=== PATIENT | male | born 1990 ===

== ENCOUNTER 2018-05-08 14:50 | Observation (INO) | payer OTHER ==
[2018-05-08] MEDS ORDERED: Sodium Chloride 0.9% 1,000 ML IV ONE ×2 (15:33→17:45)
--- NOTE | 2018-05-08 15:41 | ED PDOC ---
Upper Extremity Pain/Injury Time Seen by Provider: 05/08/18 15:00 Chief Complaint (Nursing): Upper Extremity Problem/Injury Chief Complaint (Provider): Upper Extremity Problem/Injury History Per: Patient History/Exam Limitations: no limitations Onset/Duration Of Symptoms: Days (x 1) Current Symptoms Are (Timing): Still Present Quality: Pressure, "Pain" Severity: None Exacerbating Factor(s): Nothing Additional Complaint(s): 28 year old male with no significant medical history presents to the ED for evaluation of atraumatic left arm swelling and pressure since last night. Patient regularly works out at a [employer] and carries weights on his arms. is at bedside and reports that he received Advil with last dose at 11am this morning. Patient was seen at an urgent care [facility] and was sent here for evaluation of potential blood clot or rhabdo per paperwork in patient's possession. Denies injury, trauma, history of cancer, dyspnea, chest pain, other muscle/joint pain, fever, tobacco abuse, hematuria, and any drug use. PMD: none Past Medical History Reviewed: Historical Data, Nursing Documentation, Vital Signs Vital Signs: Last Vital Signs Temp 97.6 F 05/08/18 14:56 Pulse 54 L 05/08/18 14:56 Resp 16 05/08/18 14:56 BP 120/71 05/08/18 14:56 Pulse Ox 99 05/08/18 14:56 - Medical History PMH: No Chronic Diseases - Surgical History Surgical History: No Surg Hx - Family History Family History: States: No Known Family Hx - Social History Current smoker - smoking cessation education provided: No Alcohol: Occasional Drugs: Denies - Home Medications Home Medications: Ambulatory Orders Medication Instructions Recorded No Known Home Med 05/08/18 - Allergies Allergies/Adverse Reactions: Allergies Allergy/AdvReac Type Severity Reaction Status Date / Time No Known Allergies Allergy Verified 05/08/18 14:56 Review of Systems ROS Statement: Except As Marked, All Systems Reviewed And Found Negative Skin: Positive for: Other (left arm swelling) Physical Exam - Reviewed Nursing Documentation Reviewed: Yes Vital Signs Reviewed: Yes - Physical Exam Comments: GENERAL APPEARANCE: Patient is awake, alert, oriented x 3, in no acute distress. SKIN: Warm, dry; (-) cyanosis. NECK: Supple, FROM ENT: Mucus membranes moist. Airway patent, (-) stridor. CHEST AND RESPIRATORY: (-) rales, (-) rhonchi, (-) wheezes; breath sounds equal bilaterally. Respirations even and nonlabored. HEART AND CARDIOVASCULAR: (-) irregularity EXTREMITY LUE: (+) painless edema to mid-upper to mid-lower arm; sensation intact. Full ROM at all joints, capillary refill intact; (-) deformity. (-) distal neurovascular deficit, (-) warmth, (-) erythema, (-) tenderness (-) ecchymosis. Remainder of upper extremity nontender with FROM. NEURO AND PSYCH: Mental status as above. Gait: steady. Speech: clear. (-) facial asymmetry (-) aphasia - Laboratory Results Result Diagrams: 05/08/18 16:32 05/08/18 16:32 - ECG O2 Sat by Pulse Oximetry: 99 (RA) Pulse Ox Interpretation: Normal Medical Decision Making Medical Decision Makin:30 Impression: upper arm swelling, concern for DVT vs rhabdo vs muscle strain --IV access --CK --CBC --CMP --ESR --Duplex US --NS IV 1,000 mls 16:35 US FINDINGS: LEFT: 1. Internal Jugular: 1.1. Compressibility - Fully compressible: Thrombus - None : Flow - Phasic: Augmentation -Normal: Reflux - None. 2. Subclavian: 2.1. Compressibility - Fully compressible: Thrombus - None : Flow - Phasic: Augmentation -Normal: Reflux - None. 3. Axillary: 3.1. Compressibility - Fully compressible: Thrombus - None : Flow - Phasic: Augmentation -Normal: Reflux - None. 4. Brachial: 4.1. Compressibility - Fully compressible: Thrombus - None: Flow - Phasic: Augmentation -Normal: Reflux - None. 5. Ulnar: 5.1. Compressibility - Fully compressible: Thrombus - None: Flow - Phasic: Augmentation -Normal: Reflux - None. 6. Radial: 6.1. Compressibility - Fully compressible: Thrombus - None: Flow - Phasic: Augmentation - Normal: Reflux - None. 7. Cephalic: 7.1. Compressibility - Fully compressible: Thrombus - None: Flow - Phasic: Augmentation -Normal: Reflux - None. 8. Basilic: 8.1. Compressibility - Fully compressible: Thrombus - None: Flow - Phasic: Augmentation -Normal: Reflux - None. OTHER FINDINGS: Left: None. IMPRESSION: Left: No evidence of vein thrombosis of the left upper extremity with excellent venous flow. Normal valve function noted of the left side. 1740 Labs reviewed, in light of elevated CK, additional 1 liter of NS ordered. Toradol 30mg IVP ordered. Elevation of LFTs also noted. Case discussed with ED MD Wagner, who recommends admission to med/surg for observation and IV hydration. Consult placed to med claim professional, Dr Pittman. ON re-evaluation, patient resting comfortably eating pizza. No complaints at present. [address] Pittman who is agreeable to obs med/surg admission. Patient agreeable to admission. Vitals stable. Scribe Attestation: Documented by Deb Plunkett acting as a scribe for Cat Dawson PA-C, MD Scribe Attestation: All medical record entries made by the Scribe were at my direction and personally dictated by me. I have reviewed the chart and agree that the record accurately reflects my personal performance of the history, physical exam, medical decision making, and the department course for this patient. I have also personally directed, reviewed, and agree with the discharge instructions and disposition. Disposition - Clinical Impression Clinical Impression: Swelling of upper extremity, Rhabdomyolysis - Patient ED Disposition Is Patient to be Admitted: Yes (med/surg obs) Counseled Patient/Family Regarding: Studies Performed, Diagnosis - Disposition Disposition Time: 18:25 Condition: STABLE - Pt Status Changed To: Hospital Disposition Of: Observation (med/surg) - POA Present On Arrival: None Results - Diagnostic Imaging Results Radiology Results Upper Extremity Ultrasound 05/08/18 15:28 IMPRESSION: Left: No evidence of vein thrombosis of the left upper extremity with excellent venous flow. Normal valve function noted of the left side. - Lab Results Lab Results: 05/08/18 05/08/18 16:32 16:32 WBC 4.0 L RBC 4.84 Hgb 14.6 Hct 42.7 MCV 88.3 MCH 30.2 MCHC 34.2 RDW 13.4 Plt Count 198 MPV 9.3 Neut % (Auto) 40.5 L Lymph % (Auto) 47.3 H [place] % (Auto) 8.9 Eos % (Auto) 2.9 Baso % (Auto) 0.4 Neut # (Auto) 1.6 L Lymph # (Auto) 1.9 [place] # (Auto) 0.4 Eos # (Auto) 0.1 Baso # (Auto) 0.0 ESR 5 Sodium 138 Potassium 4.3 Chloride 101 Carbon Dioxide 30 Anion Gap 11 BUN 15 Creatinine 0.8 Est GFR ( Amer) > 60 Est GFR (Non-Af Amer) > 60 Random Glucose 79 Calcium 9.9 Total Bilirubin 0.6 AST 233 H ALT 144 H Alkaline Phosphatase 61 Total Creatine Kinase 6797 H Total Protein 7.4 Albumin 4.2 Globulin 3.2 Albumin/Globulin Ratio 1.3
--- NOTE | 2018-05-08 16:40 | US ---
Date of service: 05/08/2018 PROCEDURE: Left Upper Extremity Venous Duplex Exam HISTORY: r/o dvt PRIORS: None. TECHNIQUE: Left upper extremity, internal jugular, subclavian, axillary, brachial, ulnar, radial, basilic and upper cephalic veins were evaluated. Flow was assessed with color Doppler, compressibility, assessment of phasic flow and augmentation response. Report prepared by vascular ultrasound technician. FINDINGS: LEFT: 1. Internal Jugular: 1.1. Compressibility - Fully compressible: Thrombus - None : Flow - Phasic: Augmentation -Normal: Reflux - None. 2. Subclavian: 2.1. Compressibility - Fully compressible: Thrombus - None : Flow - Phasic: Augmentation -Normal: Reflux - None. 3. Axillary: 3.1. Compressibility - Fully compressible: Thrombus - None : Flow - Phasic: Augmentation -Normal: Reflux - None. 4. Brachial: 4.1. Compressibility - Fully compressible: Thrombus - None: Flow - Phasic: Augmentation -Normal: Reflux - None. 5. Ulnar: 5.1. Compressibility - Fully compressible: Thrombus - None: Flow - Phasic: Augmentation -Normal: Reflux - None. 6. Radial: 6.1. Compressibility - Fully compressible: Thrombus - None: Flow - Phasic: Augmentation - Normal: Reflux - None. 7. Cephalic: 7.1. Compressibility - Fully compressible: Thrombus - None: Flow - Phasic: Augmentation -Normal: Reflux - None. 8. Basilic: 8.1. Compressibility - Fully compressible: Thrombus - None: Flow - Phasic: Augmentation -Normal: Reflux - None. OTHER FINDINGS: Left: None. IMPRESSION: Left: No evidence of vein thrombosis of the left upper extremity with excellent venous flow. Normal valve function noted of the left side.
[2018-05-08 16:58] LABS: BASO % 0.4 % (0.0-2.0); EOS # 0.1 K/uL (0.0-0.7); EOS % 2.9 % (0.0-4.0); HEMOGLOBIN 14.6 g/dL (12.0-18.0); LYMPH # 1.9 K/uL (1.0-4.3); LYMPH % 47.3 % (20.0-40.0); MEAN CELL VOLUME 88.3 fl (80.0-94.0); MEAN CORPUSCULAR HEMOGLOBIN 30.2 pg (27.0-31.0); MEAN CORPUSCULAR HGB CONC 34.2 g/dL (33.0-37.0); MEAN PLATELET VOLUME 9.3 fl (7.2-11.7); MONO # 0.4 K/uL (0.0-0.8); MONO % 8.9 % (0.0-10.0); NEUT # 1.6 K/uL (1.8-7.0); NEUT % 40.5 % (50.0-75.0); NRBC % 0.1 % (0.0-0.0); RBC 4.84 Mil/uL (4.40-5.90); RED CELL DISTRIBUTION WIDTH 13.4 % (11.5-14.5)
[2018-05-08 17:07] LABS: ALB/GLOB RATIO 1.3 (1.0-2.1); ALBUMIN 4.2 g/dL (3.5-5.0); ALT/SGPT 144 U/L (21-72); AST/SGOT 233 U/L (17-59); BLOOD UREA NITROGEN 15 mg/dl (9-20); CALCIUM 9.9 mg/dL (8.4-10.2); GFR NON-AFRICAN AMERICAN > 60
[2018-05-08] MEDS ORDERED: Sodium Chloride 0.9% 1,000 ML IV SCH (17:45)
[2018-05-08] MEDS: Sodium Chloride 0.9% 1,000 ML IV SCH (19:57)
[2018-05-09] MEDS: Sodium Chloride 0.9% 1,000 ML IV SCH ×5 (00:14→21:05)
[2018-05-09 00:33] VITALS: BMI 22.4
[2018-05-09 02:11] LABS: URINE BILIRUBIN NEGATIVE (NEGATIVE); URINE BLOOD NEGATIVE (NEGATIVE); URINE CLARITY CLEAR (Clear); URINE COLOR STRAW (YELLOW); URINE GLUCOSE (UA) NEG (NEGATIVE); URINE LEUKOCYTE ESTERASE NEG Leu/uL (Negative); URINE PROTEIN NEGATIVE (NEGATIVE); URINE UROBILINOGEN 0.2-1.0 mg/dL (0.2-1.0)
[2018-05-09 07:02] LABS: HEMOGLOBIN 13.4 g/dL (12.0-18.0); MEAN CELL VOLUME 87.9 fl (80.0-94.0); MEAN CORPUSCULAR HEMOGLOBIN 30.4 pg (27.0-31.0); MEAN CORPUSCULAR HGB CONC 34.6 g/dL (33.0-37.0); RBC 4.4 Mil/uL (4.40-5.90); RED CELL DISTRIBUTION WIDTH 13.8 % (11.5-14.5); WHITE BLOOD COUNT 4.5 K/uL (4.8-10.8)
[2018-05-09 07:11] LABS: ALB/GLOB RATIO 1.1 (1.0-2.1); ALT/SGPT 94 U/L (21-72); AST/SGOT 124 U/L (17-59); BLOOD UREA NITROGEN 13 mg/dl (9-20); CALCIUM 8.4 mg/dL (8.4-10.2); GFR NON-AFRICAN AMERICAN > 60
[2018-05-09 11:25] LABS: URINE BILIRUBIN NEGATIVE (NEGATIVE); URINE BLOOD NEGATIVE (NEGATIVE); URINE CLARITY CLEAR (Clear); URINE COLOR COLORLESS (YELLOW); URINE GLUCOSE (UA) NEG (NEGATIVE); URINE LEUKOCYTE ESTERASE NEG Leu/uL (Negative); URINE PROTEIN NEGATIVE (NEGATIVE); URINE UROBILINOGEN 0.2-1.0 mg/dL (0.2-1.0)
[2018-05-10 00:42] VITALS: RESP 20
[2018-05-10] MEDS: Sodium Chloride 0.9% 1,000 ML IV SCH ×4 (00:50→11:31)
--- NOTE | 2018-05-10 07:02 | CP.PCM.HP ---
History of Present Illness - History of Present Illness History of Present Illness: This is a 28 y/o male with no significant medical hx was admitted last night for pain swelling of the left upper arm noted after extensive triceps exercises at a [employer]. he sought eval at an Urgent care and was advised ER eval. He was noted to have left upper arm swelling and CPK levels was more than 6797. CPK is down to 2643 today. Left upper arm is noticeably swollen. Present on Admission - Present on Admission Any Indicators Present on Admission: No History of DVT/PE: No History of Uncontrolled Diabetes: No Urinary Catheter: No Decubitus Ulcer Present: No Past Patient History - Past Medical History & Family History Past Medical History?: No - Past Social History Alcohol: Occasional Drugs: Denies - CARDIAC Hx Cardiac Disorders: No - MUSCULOSKELETAL/RHEUMATOLOGICAL Hx Falls: No - PSYCHIATRIC Hx Substance Use: No - SURGICAL HISTORY Hx Surgeries: No - ANESTHESIA Hx Anesthesia: No Hx Anesthesia Reactions: No Meds Allergies/Adverse Reactions: Allergies Allergy/AdvReac Type Severity Reaction Status Date / Time No Known Allergies Allergy Verified 05/08/18 14:56 Physical Exam - Head Exam Head Exam: NORMAL INSPECTION - Eye Exam Eye Exam: Normal appearance - ENT Exam ENT Exam: Mucous Membranes Moist - Respiratory Exam Respiratory Exam: Clear to Auscultation Bilateral - Cardiovascular Exam Cardiovascular Exam: REGULAR RHYTHM - GI/Abdominal Exam GI & Abdominal Exam: Normal Bowel Sounds - Neurological Exam Neurological exam: CN II-XII Intact - Psychiatric Exam Psychiatric exam: Normal Mood Results - Vital Signs Recent Vital Signs: Last Vital Signs Temp 97.7 F 05/10/18 00:41 Pulse 77 05/10/18 00:41 Resp 20 05/10/18 00:41 BP 110/68 05/10/18 00:41 Pulse Ox 99 05/10/18 00:41 - Labs Result Diagrams: 05/09/18 05:40 05/09/18 05:40 Labs: Laboratory Results - last 24 hr 05/09/18 05/09/18 05/09/18 05:40 05:40 11:07 WBC 4.5 L RBC 4.40 Hgb 13.4 Hct 38.7 MCV 87.9 MCH 30.4 MCHC 34.6 RDW 13.8 Plt Count 186 Sodium 139 Potassium 3.8 Chloride 110 H Carbon Dioxide 23 Anion Gap 10 BUN 13 Creatinine 0.8 Est GFR ( Amer) > 60 Est GFR (Non-Af Amer) > 60 Random Glucose 90 Calcium 8.4 Phosphorus 4.4 Magnesium 1.8 Total Bilirubin 0.2 AST 124 H D ALT 94 H D Alkaline Phosphatase 59 Total Creatine Kinase 2643 H Total Protein 5.7 L Albumin 3.0 L D Globulin 2.7 Albumin/Globulin Ratio 1.1 Urine Color Colorless Urine Clarity Clear Urine pH 6.0 Ur Specific [place] 1.006 Urine Protein Negative Urine Glucose (UA) Neg Urine Ketones Negative Urine Blood Negative Urine Nitrate Negative Urine Bilirubin Negative Urine Urobilinogen 0.2-1.0 Ur Leukocyte Esterase Neg Urine RBC (Auto) 1 Urine Microscopic WBC 1 05/09/18 14:15 WBC RBC Hgb Hct MCV MCH MCHC RDW Plt Count Sodium Potassium Chloride Carbon Dioxide Anion Gap BUN Creatinine Est GFR ( Amer) Est GFR (Non-Af Amer) Random Glucose Calcium Phosphorus Magnesium Total Bilirubin AST ALT Alkaline Phosphatase Total Creatine Kinase 2636 H Total Protein Albumin Globulin Albumin/Globulin Ratio Urine Color Urine Clarity Urine pH Ur Specific [place] Urine Protein Urine Glucose (UA) Urine Ketones Urine Blood Urine Nitrate Urine Bilirubin Urine Urobilinogen Ur Leukocyte Esterase Urine RBC (Auto) Urine Microscopic WBC Assessment & Plan (1) Rhabdomyolysis Status: Acute - Assessment and Plan (Free Text) Plan: admit Hydration pain medications Monitor BMP and CPK. If CPK is lower than 2000 in the afternoon will send patienyt home otherwise will stay for another night for hydration.
[2018-05-10 07:39] LABS: ALB/GLOB RATIO 1.1 (1.0-2.1); ALBUMIN 2.9 g/dL (3.5-5.0); ALT/SGPT 89 U/L (21-72); AST/SGOT 80 U/L (17-59); BLOOD UREA NITROGEN 9 mg/dl (9-20); CALCIUM 8.5 mg/dL (8.4-10.2); GFR NON-AFRICAN AMERICAN > 60
[2018-05-10 08:29] VITALS: BP 112/67; PULSE 97; TEMP 97.9; O2SAT 97
--- NOTE | 2018-05-12 00:24 | CP.PCM.DIS ---
Provider - Provider Date of Admission: 05/08/18 18:27 Attending physician: Darrick Pittman MD Time Spent in preparation of Discharge (in minutes): 30 Diagnosis - Discharge Diagnosis (1) Rhabdomyolysis Status: Acute Hospital Course - Lab Results Lab Results: Most Recent Lab Values WBC 4.5 K/uL (4.8-10.8) L 05/09/18 05:40 RBC 4.40 Mil/uL (4.40-5.90) 05/09/18 05:40 Hgb 13.4 g/dL (12.0-18.0) 05/09/18 05:40 Hct 38.7 % (35.0-51.0) 05/09/18 05:40 MCV 87.9 fl (80.0-94.0) 05/09/18 05:40 MCH 30.4 pg (27.0-31.0) 05/09/18 05:40 MCHC 34.6 g/dL (33.0-37.0) 05/09/18 05:40 RDW 13.8 % (11.5-14.5) 05/09/18 05:40 Plt Count 186 K/uL (130-400) 05/09/18 05:40 MPV 9.3 fl (7.2-11.7) 05/08/18 16:32 Neut % (Auto) 40.5 % (50.0-75.0) L 05/08/18 16:32 Lymph % (Auto) 47.3 % (20.0-40.0) H 05/08/18 16:32 [place] % (Auto) 8.9 % (0.0-10.0) 05/08/18 16:32 Eos % (Auto) 2.9 % (0.0-4.0) 05/08/18 16:32 Baso % (Auto) 0.4 % (0.0-2.0) 05/08/18 16:32 Neut # (Auto) 1.6 K/uL (1.8-7.0) L 05/08/18 16:32 Lymph # (Auto) 1.9 K/uL (1.0-4.3) 05/08/18 16:32 [place] # (Auto) 0.4 K/uL (0.0-0.8) 05/08/18 16:32 Eos # (Auto) 0.1 K/uL (0.0-0.7) 05/08/18 16:32 Baso # (Auto) 0.0 K/uL (0.0-0.2) 05/08/18 16:32 ESR 5 mm/hr (0-15) 05/08/18 16:32 Sodium 141 mmol/l (132-148) 05/10/18 05:55 Potassium 3.7 MMOL/L (3.6-5.0) 05/10/18 05:55 Chloride 109 mmol/L (98-107) H 05/10/18 05:55 Carbon Dioxide 25 mmol/L (22-30) 05/10/18 05:55 Anion Gap 11 (10-20) 05/10/18 05:55 BUN 9 mg/dl (9-20) 05/10/18 05:55 Creatinine 0.8 mg/dl (0.8-1.5) 05/10/18 05:55 Est GFR ( Amer) > 60 05/10/18 05:55 Est GFR (Non-Af Amer) > 60 05/10/18 05:55 Random Glucose 90 mg/dL (75-110) 05/10/18 05:55 Calcium 8.5 mg/dL (8.4-10.2) 05/10/18 05:55 Phosphorus 4.4 mg/dl (2.5-4.5) 05/09/18 05:40 Magnesium 1.8 MG/DL (1.6-2.3) 05/09/18 05:40 Total Bilirubin 0.2 mg/dl (0.2-1.3) 05/10/18 05:55 AST 80 U/L (17-59) H D 05/10/18 05:55 ALT 89 U/L (21-72) H 05/10/18 05:55 Alkaline Phosphatase 50 U/L (38-126) 05/10/18 05:55 Total Creatine Kinase 1254 U/L (55-170) H 05/10/18 05:55 Total Protein 5.5 G/DL (6.3-8.2) L 05/10/18 05:55 Albumin 2.9 g/dL (3.5-5.0) L 05/10/18 05:55 Globulin 2.6 gm/dL (2.2-3.9) 05/10/18 05:55 Albumin/Globulin Ratio 1.1 (1.0-2.1) 05/10/18 05:55 Urine Color Colorless (YELLOW) 05/09/18 11:07 Urine Clarity Clear (Clear) 05/09/18 11:07 Urine pH 6.0 (5.0-8.0) 05/09/18 11:07 Ur Specific [place] 1.006 (1.003-1.030) 05/09/18 11:07 Urine Protein Negative mg/dL (NEGATIVE) 05/09/18 11:07 Urine Glucose (UA) Neg mg/dL (NEGATIVE) 05/09/18 11:07 Urine Ketones Negative mg/dL (NEGATIVE) 05/09/18 11:07 Urine Blood Negative (NEGATIVE) 05/09/18 11:07 Urine Nitrate Negative (NEGATIVE) 05/09/18 11:07 Urine Bilirubin Negative (NEGATIVE) 05/09/18 11:07 Urine Urobilinogen 0.2-1.0 mg/dL (0.2-1.0) 05/09/18 11:07 Ur Leukocyte Esterase Neg [place]/uL (Negative) 05/09/18 11:07 Urine RBC (Auto) 1 /hpf (0-3) 05/09/18 11:07 Urine Microscopic WBC 1 /hpf (0-5) 05/09/18 11:07 Urine Myoglobin < 28 mcg/L (< 28) 05/09/18 11:07 - Hospital Course Hospital Course: Pt presented to the ED with LUE swelling after strenuous workouts. Ultrasound was negative, however the CK levels were markedly elevated. After vigorous IV hydration and daily CK monitoring, the pt stabilized. The morning of discharge, the CK level was down to 1260. The pt was cleared for discharge, told to avoid any strenuous activity for 2 weeks. Discharge Exam - Head Exam Head Exam: NORMAL INSPECTION - Eye Exam Eye Exam: Normal appearance Pupil Exam: NORMAL ACCOMODATION, PERRL - ENT Exam ENT Exam: Mucous Membranes Moist - Neck Exam Neck exam: Full Rom - Respiratory Exam Respiratory Exam: Clear to PA & Lateral - Cardiovascular Exam Cardiovascular Exam: REGULAR RHYTHM, +S1, +S2 - GI/Abdominal Exam GI & Abdominal Exam: Normal Bowel Sounds - Extremities Exam Extremities exam: full ROM - Back Exam Back exam: NORMAL INSPECTION - Neurological Exam Neurological exam: Alert, CN II-XII Intact, Oriented x3 - Psychiatric Exam Psychiatric exam: Normal Affect, Normal Mood - Skin Skin Exam: Dry, Normal Color, Warm Discharge Plan - Follow Up Plan Condition: STABLE Disposition: HOME/ ROUTINE Instructions: Swelling, Rhabdomyolysis (DC) Additional Instructions: follow up with primary MD 1 week Referrals: Ant Stovall MD [Staff Provider] - Darrick Pittman MD [Medical Doctor] - Kameron Bang APN [Nurse Practitioner] -
== END 2018-05-10 12:54 | disposition home or self-care (01) ==
LOC: H.ER 14:50 → H.ERHOLD 18:27 → H.MEDSURG1 21:08
PROVIDERS: ADMIT Family Medicine; ATTEND Family Medicine
DX: M62.82 Rhabdomyolysis (principal)
CPT/HCPCS: 36415; 80053; 81003; 82550; 83735; 83874; 84100; 85025; 85027; 85651; 93971; 96361; 96374; 99284; G0378; J1885; J7030; J7040